=== PATIENT | female | born 1955 | race Caucasian/White ===

== ENCOUNTER 2016-08-20 10:29 | Outpatient (CLI) | payer MEDICAID | END 2016-08-20 10:30 | disposition home or self-care (01) | DX: E11.9 Type 2 diabetes mellitus without complications (principal) ==

== ENCOUNTER 2016-09-11 14:15 | Outpatient (CLI) | payer MEDICAID | END 2016-09-11 14:30 | disposition home or self-care (01) | DX: R07.89 Other chest pain (principal) ==

== ENCOUNTER 2016-10-08 10:46 | Outpatient (CLI) | payer MEDICAID | END 2016-10-08 10:47 | disposition home or self-care (01) | DX: R07.89 Other chest pain (principal); M17.0 Bilateral primary osteoarthritis of knee ==

== ENCOUNTER 2016-11-28 08:00 | Outpatient (CLI) | payer MEDICAID | END 2016-11-28 08:01 | disposition home or self-care (01) | DX: E11.9 Type 2 diabetes mellitus without complications (principal) ==

== ENCOUNTER 2016-12-13 15:23 | Emergency (ER) | payer MEDICAID ==
[2016-12-13] MEDS ORDERED: DEXAMETHASONE 10 MG/ML VIAL PO STA (15:42)
[2016-12-13] MEDS ORDERED: CHERRY SYRUP 10 ML UDC PO ONE (15:48)
[2016-12-13] MEDS ORDERED: DEXAMETHASONE 10 MG/ML VIAL ONE (15:48)
== END 2016-12-13 16:11 | disposition home or self-care (01) ==
DX: M54.12 Radiculopathy, cervical region (principal); E11.9 Type 2 diabetes mellitus without complications; Z79.84 Long term (current) use of oral hypoglycemic drugs; M79.7 Fibromyalgia; M19.90 Unspecified osteoarthritis, unspecified site; Z87.891 Personal history of nicotine dependence
CPT/HCPCS: 99283; A9270

== ENCOUNTER 2017-01-05 10:15 | Outpatient (CLI) | payer MEDICAID ==
--- NOTE | 2017-01-05 18:14 | XRAY Report ---
CERVICAL SPINE, THREE VIEWS: 01/05/2017 CLINICAL HISTORY: Acute neck pain. TECHNIQUE: Three views: AP, lateral, and odontoid. FINDINGS: C-spine can only be seen adequately on lateral projection down to the inferior aspect of C6. It is, therefore, suboptimal. An optimal lateral C- spine should include the C7-T1 level. Mild anterior spurring is noted along the anterior inferior aspect of C3. A moderate-sized spur is seen along the anterior inferior aspect of C4. Moderate spurring is noted along the adjacent anterior surfaces of C5 and C6. A moderate degree of disk space narrowing is noted at the C5-6 level. These findings were seen on patient's cervical spine CT of 07/25/2015 and are unchanged. Odontoid process is normal. IMPRESSION: 1. TECHNICALLY SUBOPTIMAL EXAMINATION. LATERAL C-SPINE WAS ONLY SEEN DOWN TO THE INFERIOR ASPECT OF C6. SUGGEST PATIENT RETURN FOR SWIMMER'S VIEW TO VISUALIZE THE C-SPINE DOWN TO C7-T1 LEVEL. 2. OSTEOARTHRITIS AND DEGENERATIVE DISK DISEASE ARE ONCE AGAIN NOTED IN THE CERVICAL SPINE AT C5-6. OSTEOARTHRITIS AT THIS LEVEL IS OF MODERATE DEGREE AND UNCHANGED COMPARED TO 07/25/2015. JOB #: [id number] EXT JOB #: [id number] ANTOINE
== END 2017-01-05 10:16 | disposition home or self-care (01) ==
LOC: DI.N 10:15
PROVIDERS: ATTEND Family Medicine
DX: M47.892 Other spondylosis, cervical region (principal); M50.322 Other cervical disc degeneration at C5-C6 level
CPT/HCPCS: 72040

== ENCOUNTER 2017-01-16 10:20 | Emergency (ER) | payer MEDICAID ==
[2017-01-16] MEDS ORDERED: METHOCARBAMOL 500 MG TABLET PO STA (12:20)
[2017-01-16] MEDS ORDERED: DEXAMETHASONE 10 MG/ML VIAL PO STA (12:20)
[2017-01-16] MEDS ORDERED: KETOROLAC 60 MG/2 ML VIAL IM STA (12:20)
--- NOTE | 2017-01-16 12:24 | ED Physician Documentation ---
History of Present Illness - Stated complaint Stated Complaint: BACK,NECK,BILAT ARM PAIN - Chief complaint Chief Complaint: Back Pain - History obtained from History obtained from: Patient - History of Present Illness Timing: Other (1month) Pain level max: 8 Pain level now: 8 Improved by: flexeril Worsened by: movement - Additonal information Additional information: Patient is a 61-year-old female who complains of neck pain for the past month. States that this is been worsening over the past month. Has seen her primary care provider, but he did not change her medications. She was here a month ago for same received dexamethasone and was placed on Flexeril. That did help, but pain has not recurred. States occasionally the pain radiates to the bilateral upper arms. Occasionally feels like a cramping pain. No loss of bowel or bladder control. No difficulty using the hands. Review of Systems Constitutional: denies: Fever, Chills Respiratory: denies: Cough GI: denies: Nausea, Vomiting, Diarrhea : denies: Dysuria Skin: denies: Rash Musculoskeletal: denies: Neck pain, Back pain Neurologic: denies: Headache PD PAST MEDICAL HISTORY - Past Medical History Past Medical History: Yes Cardiovascular: None, High cholesterol Respiratory: Asthma, Sleep apnea, CPAP use, Tuberculosis Neuro: Headache/migraine, Head injury Endocrine/Autoimmune: Type 2 diabetes GI: GERD, Cholelithiasis : Incontinence HEENT: None Psych: Depression, Anxiety, Panic attacks, Post traumatic stress disorder, Claustrophobia Musculoskeletal: Osteoarthritis, Fibromyalgia, Chronic back pain Derm: None - Past Surgical History Past Surgical History: Yes General: Cholecystectomy 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 HEENT: Tonsil/Adenoidectomy Derm: Skin cancer surgery - Present Medications Home Medications: Ambulatory Orders Medication Instructions Recorded Confirmed Albuterol [Proventil Hfa] 200 puffs INH Q4H PRN 02/05/13 01/16/17 Carisoprodol [Soma] 350 mg PO QPM 02/05/13 01/16/17 Fluticasone [Flonase] 1 sprays ANABELA DAILY 02/05/13 01/16/17 Omeprazole [PriLOSEC] 20 mg PO DAILY 02/05/13 01/16/17 Pregabalin [Lyrica] 225 mg PO BID 02/05/13 01/16/17 traMADol [Ultram] 100 mg PO TID 03/16/15 01/16/17 Pravastatin Sodium 40 mg PO DAILY 05/09/15 01/16/17 metFORMIN [Glucophage] 1,000 mg PO BIDWM 05/09/15 01/16/17 Loratadine 10 mg PO DAILY 06/12/15 01/16/17 busPIRone [Buspar] 10 mg ORAL BID 08/26/15 01/16/17 Amitriptyline [Elavil] 10 mg PO HS #30 tablet 09/25/15 01/16/17 raNITIdine [Zantac] 1 tab PO DAILY 03/23/16 01/16/17 Cyclobenzaprine [Flexeril] 10 mg PO TID PRN #20 tablet 12/13/16 01/16/17 Glipizide 5 mg PO DAILY 01/16/17 01/16/17 Meloxicam [Mobic] 7.5 mg PO BID PRN #20 tablet 01/16/17 Methocarbamol [Robaxin] 500 mg PO Q6H PRN #14 tablet 01/16/17 - Allergies Allergies/Adverse Reactions: Allergies Allergy/AdvReac Type Severity Reaction Status Date / Time No Known Drug Allergies Allergy Verified 01/16/17 10:30 - Social History Does the pt smoke?: No Smoking Status: Former smoker Does the pt drink ETOH?: No Does the pt have substance abuse?: No - Immunizations Immunizations are current?: No Immunizations: TDAP >10years/unknown - POLST Patient has POLST: No PD ED PE NORMAL - Vitals Vital signs reviewed: Yes - General General: Alert and oriented X 3, No acute distress - HEENT HEENT: Moist mucous membranes - Neck Neck: Supple, no meningeal sign, No bony TTP, Other (mild paraspinal muscle spasm B ) - Cardiac Cardiac: RRR, Strong equal pulses - Respiratory Respiratory: No respiratory distress, Clear bilaterally - Back Back: No spinal TTP - Derm Derm: Warm and dry - Neuro Neuro: Alert and oriented X 3, 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 Will treat with Toradol and Robaxin. Also given dexamethasone. Will place on Robaxin for home. Will also place on Mobic for home. Patient is well-appearing, nontoxic. Afebrile. No evidence of fracture or epidural abscess. Patient counseled regarding signs and symptoms for which I believe and urgent re-evaluation would be necessary. Patient with good understanding of and agreement to plan and is comfortable going home at this time This document was made in part using voice recognition software. While efforts are made to proofread this document, sound alike and grammatical errors may occur. Departure - Departure Disposition: 01 Home, Self Care Clinical Impression: Cervical radiculopathy Condition: Good Instructions: ED Cervical Radiculopathy, ED Neck Back Pain General Follow-Up: Amador Merchant MD [Primary Care Provider] - Within 1 week Prescriptions: Meloxicam [Mobic] 7.5 mg PO BID PRN #20 tablet PRN Reason: pain Methocarbamol [Robaxin] 500 mg PO Q6H PRN #14 tablet PRN Reason: neck pain Comments: Return if you worsen. Do not drive or operate heavy machinery while taking the robaxin. Discharge Date/Time: 01/16/17 13:00
[2017-01-16] MEDS ORDERED: METHOCARBAMOL 500 MG TABLET PO ONE (12:29)
[2017-01-16] MEDS ORDERED: KETOROLAC 60 MG/2 ML VIAL ONE (12:29)
[2017-01-16] MEDS ORDERED: DEXAMETHASONE 10 MG/ML VIAL ONE (12:29)
[2017-01-16 13:01] VITALS: BP 139/92
== END 2017-01-16 13:00 | disposition home or self-care (01) ==
LOC: ED 10:20
DX: M54.12 Radiculopathy, cervical region (principal); M19.90 Unspecified osteoarthritis, unspecified site; M79.7 Fibromyalgia; E11.9 Type 2 diabetes mellitus without complications; Z79.84 Long term (current) use of oral hypoglycemic drugs; Z87.891 Personal history of nicotine dependence
CPT/HCPCS: 96372; 99283; A9270

== ENCOUNTER 2017-03-10 11:10 | Outpatient (CLI) | payer MEDICAID ==
[2017-03-10 14:19] LABS: HEMOGLOBIN A1C 0.98 g/dL
[2017-03-10 14:29] LABS: CALCIUM 9.5 mg/dL (8.5-10.3); CREATININE 0.9 mg/dL (0.4-1.0); POTASSIUM 4.1 mmol/L (3.5-5.0)
== END 2017-03-10 11:11 | disposition home or self-care (01) ==
LOC: LAB.N 11:10
PROVIDERS: ATTEND Family Medicine
DX: E11.9 Type 2 diabetes mellitus without complications (principal)
CPT/HCPCS: 36415; 80048; 83036

== ENCOUNTER 2017-04-01 14:51 | Emergency (ER) | payer MEDICAID ==
[2017-04-01] MEDS ORDERED: DEXAMETHASONE 10 MG/ML VIAL PO STA (15:25)
--- NOTE | 2017-04-01 16:03 | XRAY Preliminary Report ---
Exam: XR Chest 2 View PA/LAT IMPRESSION: Normal 2-view chest radiography. [facility] SITE ID: [id number]
--- NOTE | 2017-04-01 16:05 | XRAY Report ---
EXAM: CHEST RADIOGRAPHY EXAM DATE: 04/01/2017 03:52 PM. CLINICAL HISTORY: Central chest pain. COMPARISON: 11/27/2014 chest x-ray. TECHNIQUE: 2 views. FINDINGS: Lungs/Pleura: No focal opacities evident. No pleural effusion. No pneumothorax. Normal volumes. Mediastinum: Heart and mediastinal contours are unremarkable. Other: None. IMPRESSION: Normal 2-view chest radiography. [facility] Referring Provider Line: [phone] SITE ID: [id number]
--- NOTE | 2017-04-01 16:12 | ED Physician Documentation ---
PD HPI CHEST PAIN - Stated complaint Stated Complaint: RIB PAIN - Chief complaint Chief Complaint: General - History obtained from History obtained from: Patient, Family - History of Present Illness Timing - onset: How many weeks ago (3-4) Timing - onset during: Rest Timing - duration: Weeks (3) Timing - details: Gradual onset, Still present Quality: Aching, Sharp, Pain Location: Substernal Radiation: No: Jaw, Neck, Back, Abdominal, Left upper extremity, Right upper extremity Improved by: Nothing Worsened by: Inspiration, Movement, Palpation, Position Associated symptoms: No: Shortness of air, Diaphoresis, Nausea, Vomiting, Feeling faint / dizzy, General Weakness, Palpitations, Cough Similar symptoms before: Has not had sx before Recently seen: Not recently seen - Additional information Additional information: 61-year-old female has concerns about pain in her anterior chest that she thinks occurred after a fall in the bathtub 2 months ago. She is really only able to elicit symptoms for the past 3-4 weeks and she does have a history of some sobbing in between this time. Review of Systems Constitutional: denies: Fever Eyes: denies: Decreased vision Ears: denies: Ear pain Nose: denies: Congestion Throat: denies: Sore throat Cardiac: reports: Chest pain / pressure. denies: Palpitations, Pedal edema, Calf pain Respiratory: denies: Dyspnea, Cough GI: denies: Abdominal Pain, Nausea, Vomiting : denies: Dysuria, Frequency Skin: denies: Rash Musculoskeletal: reports: Neck pain, Back pain, Extremity pain Neurologic: denies: Generalized weakness, Focal weakness, Numbness PD PAST MEDICAL HISTORY - Past Medical History Cardiovascular: None, High cholesterol Respiratory: Asthma, Sleep apnea, CPAP use, Tuberculosis Neuro: Headache/migraine, Head injury Endocrine/Autoimmune: Type 2 diabetes GI: GERD, Cholelithiasis : Incontinence HEENT: None Psych: Depression, Anxiety, Panic attacks, Post traumatic stress disorder, Claustrophobia Musculoskeletal: Osteoarthritis, Fibromyalgia, Chronic back pain Derm: None - Past Surgical History Past Surgical History: Yes General: Cholecystectomy 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 HEENT: Tonsil/Adenoidectomy Derm: Skin cancer surgery - Present Medications Home Medications: Ambulatory Orders Medication Instructions Recorded Confirmed Albuterol [Proventil Hfa] 200 puffs INH Q4H PRN 02/05/13 01/16/17 Carisoprodol [Soma] 350 mg PO QPM 02/05/13 01/16/17 Fluticasone [Flonase] 1 sprays ANABELA DAILY 02/05/13 01/16/17 Omeprazole [PriLOSEC] 20 mg PO DAILY 02/05/13 01/16/17 Pregabalin [Lyrica] 225 mg PO BID 02/05/13 01/16/17 traMADol [Ultram] 100 mg PO TID 03/16/15 01/16/17 Pravastatin Sodium 40 mg PO DAILY 05/09/15 01/16/17 metFORMIN [Glucophage] 1,000 mg PO BIDWM 05/09/15 01/16/17 Loratadine 10 mg PO DAILY 06/12/15 01/16/17 busPIRone [Buspar] 10 mg ORAL BID 08/26/15 01/16/17 Amitriptyline [Elavil] 10 mg PO HS #30 tablet 09/25/15 01/16/17 raNITIdine [Zantac] 1 tab PO DAILY 03/23/16 01/16/17 Cyclobenzaprine [Flexeril] 10 mg PO TID PRN #20 tablet 12/13/16 01/16/17 Glipizide 5 mg PO DAILY 01/16/17 01/16/17 Meloxicam [Mobic] 7.5 mg PO BID PRN #20 tablet 01/16/17 Methocarbamol [Robaxin] 500 mg PO Q6H PRN #14 tablet 01/16/17 - Allergies Allergies/Adverse Reactions: Allergies Allergy/AdvReac Type Severity Reaction Status Date / Time No Known Drug Allergies Allergy Verified 01/16/17 10:30 - Social History Does the pt smoke?: No Smoking Status: Former smoker Does the pt drink ETOH?: No Does the pt have substance abuse?: No - Immunizations Immunizations are current?: No Immunizations: TDAP >10years/unknown - POLST Patient has POLST: No PD ED PE NORMAL - Vitals Vital signs reviewed: Yes (Hypertensive and tachycardic) - General General: Alert and oriented X 3, No acute distress, Well developed/nourished - HEENT HEENT: Atraumatic, PERRL, EOMI - Neck Neck: Supple, no meningeal sign, Other (Mild tenderness to the left lateral neck ) - Cardiac Cardiac: RRR, No murmur - Respiratory Respiratory: No respiratory distress, Clear bilaterally, Other (There is point tenderness along the sternum reproducing her symptoms) - Abdomen Abdomen: Soft, Non tender - Back Back: No CVA TTP, No spinal TTP - Derm Derm: Normal color, Warm and dry, No rash - Extremities Extremities: No deformity, No edema - Neuro Neuro: Alert and oriented X 3, No motor deficit, Normal speech - Psych Psych: Normal mood, Normal affect Results - Vitals Vitals: Vital Signs - 24 hr 04/01/17 15:08 Temperature 36.0 C L Heart Rate 101 H Respiratory 20 Rate Blood Pressure 122/86 H O2 Saturation 97 Oxygen O2 Source Room air - Rads (name of study) 2 view chest Radiology: Prelim report reviewed (Impression: Normal two-view chest radiography.), EMP read indepedently, See rad report PD MEDICAL DECISION MAKING - ED course Complexity details: reviewed results, re-evaluated patient, considered differential, d/w patient, d/w family ED course: 61-year-old female with pain in the anterior chest for the past 3-4 weeks appears to have acute costochondritis. She has been doing some sobbing at night and this is the presumed etiology of her costochondritis. Here in the emergency department she is treated with dexamethasone 10 mg orally. Departure - Departure Disposition: 01 Home, Self Care Clinical Impression: Costochondritis Condition: Stable Instructions: ED Chest Pain Costochondritis Follow-Up: Gianna Bill PA-C [Primary Care Provider] -
[2017-04-01 17:15] VITALS: BP 121/81
== END 2017-04-01 17:14 | disposition home or self-care (01) ==
LOC: ED 14:51
DX: M94.0 Chondrocostal junction syndrome [Tietze] (principal); J45.909 Unspecified asthma, uncomplicated; G47.30 Sleep apnea, unspecified; E11.9 Type 2 diabetes mellitus without complications; Z79.84 Long term (current) use of oral hypoglycemic drugs; M79.7 Fibromyalgia; M19.90 Unspecified osteoarthritis, unspecified site; K21.9 Gastro-esophageal reflux disease without esophagitis; Z86.11 Personal history of tuberculosis; Z85.828 Personal history of other malignant neoplasm of skin; Z87.891 Personal history of nicotine dependence
CPT/HCPCS: 71020; 99283; 99284

== ENCOUNTER 2018-03-04 11:56 | Emergency (ER) | payer MEDICAID, MEDICARE ==
--- NOTE | 2018-03-04 14:39 | ED Physician Documentation ---
History of Present Illness - Stated complaint Stated Complaint: EARS PLUGGED UP - Chief complaint Chief Complaint: Heent - Additonal information Additional information: hx from pt cerumen impaction for a month used an OTC ear drop she does not know the name of has not seen PMD - goes to a clinic in [place] but does not know the name of her new doctor has been using Q tips hard to hear Review of Systems Ears: reports: Other (impacted cerumen) PD PAST MEDICAL HISTORY - Past Medical History Past Medical History: Yes Cardiovascular: None, High cholesterol Respiratory: Asthma, Sleep apnea, CPAP use, Tuberculosis Endocrine/Autoimmune: Type 2 diabetes GI: GERD, Cholelithiasis : Incontinence HEENT: None Psych: Depression, Anxiety, Panic attacks, Post traumatic stress disorder, Claustrophobia Musculoskeletal: Osteoarthritis, Fibromyalgia, Chronic back pain Derm: None - Past Surgical History Past Surgical History: Yes General: Cholecystectomy 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 HEENT: Tonsil/Adenoidectomy Derm: Skin cancer surgery - Present Medications Home Medications: Ambulatory Orders Medication Instructions Recorded Confirmed Albuterol [Proventil Hfa] 200 puffs INH Q4H PRN 02/05/13 01/16/17 Fluticasone [Flonase] 1 sprays ANABELA DAILY 02/05/13 01/16/17 Pregabalin [Lyrica] 225 mg PO BID 02/05/13 01/16/17 traMADol [Ultram] 100 mg PO TID 03/16/15 01/16/17 Pravastatin Sodium 40 mg PO DAILY 05/09/15 01/16/17 metFORMIN [Glucophage] 1,000 mg PO BIDWM 05/09/15 01/16/17 Loratadine 10 mg PO DAILY 06/12/15 01/16/17 busPIRone [Buspar] 10 mg ORAL BID 08/26/15 01/16/17 Amitriptyline [Elavil] 10 mg PO HS #30 tablet 09/25/15 01/16/17 raNITIdine [Zantac] 1 tab PO DAILY 03/23/16 01/16/17 Glipizide 5 mg PO DAILY 01/16/17 01/16/17 Carbamide Peroxide Otic Drop 10 drops OT BID #1 bottle 03/04/18 [Debrox Otic Drops] Docusate Sodium 1 ml EACHEAR DAILY #25 ml 03/04/18 - Allergies Allergies/Adverse Reactions: Allergies Allergy/AdvReac Type Severity Reaction Status Date / Time No Known Drug Allergies Allergy Verified 03/04/18 12:07 - Social History Does the pt smoke?: No Smoking Status: Never smoker Does the pt drink ETOH?: No Does the pt have substance abuse?: No - Immunizations Immunizations are current?: No Immunizations: TDAP >10years/unknown - POLST Patient has POLST: No Results - Vitals Vitals: Vital Signs - 24 hr 03/04/18 12:05 Temperature 36 C L Heart Rate 79 Respiratory 18 Rate Blood Pressure 118/80 O2 Saturation 95 Oxygen O2 Source Room air PD MEDICAL DECISION MAKING - ED course ED course: multiple attempts with manual curette removal and irrigation with peroxide removed much but not all of the cerumen - Tm parlty vis on the right and pt can hear again, still hard cerumen packed against TM on the left MSE performed problem is cerumen impaction and non emergent txed as best possible given busy ED feel pt stable and safe for dc dc with ceruminolytics and PMD fup - Sepsis Event Vital Signs: Vital Signs - 24 hr 03/04/18 12:05 Temperature 36 C L Heart Rate 79 Respiratory 18 Rate Blood Pressure 118/80 O2 Saturation 95 Oxygen O2 Source Room air Departure - Departure Disposition: 01 Home, Self Care Clinical Impression: Impacted cerumen of both ears Condition: Good Instructions: ED Wax Ear Home Removal Prescriptions: Carbamide Peroxide Otic Drop [Debrox Otic Drops] 10 drops OT BID #1 bottle Docusate Sodium 1 ml EACHEAR DAILY #25 ml Comments: Use the docusate 1 ml in each ear once daily for three days and if still clogged try the debrox 10 drops in each ear twice a day for a week Follow up with your PMD for a recheck if not better by next week. Do not use Qtips - it just packs the wax in tighter
[2018-03-04 14:57] VITALS: BP 123/81
== END 2018-03-04 14:56 | disposition home or self-care (01) ==
LOC: ED 11:56
DX: H61.23 Impacted cerumen, bilateral (principal); E11.9 Type 2 diabetes mellitus without complications; E78.00 Pure hypercholesterolemia, unspecified
CPT/HCPCS: 69209; 99283

== ENCOUNTER 2018-08-02 11:03 | Outpatient (CLI) | payer MEDICARE, MEDICAID ==
[2018-08-02 19:27] LABS: BASOPHILS % (AUTO) 0.4 %; EOSINOPHILS # (AUTO) 0.2 10^3/uL (0.0-0.7); EOSINOPHILS % (AUTO) 2.3 %; HGB - HEMOGLOBIN 13.7 g/dL (12.0-16.0); LYMPHOCYTES # (AUTO) 2.6 10^3/uL (1.5-3.5); LYMPHOCYTES % (AUTO) 40.5 %; MEAN CORPUSCULAR HEMOGLOBIN 30.3 pg (27.0-31.0); MEAN CORPUSCULAR HGB CONC 32.6 g/dL (32.0-36.0); MEAN CORPUSCULAR VOLUME 93.1 fL (81.0-99.0); MEAN PLATELET VOLUME 10.1 fL (7.9-10.8); MONOCYTES # (AUTO) 0.4 10^3/uL (0.0-1.0); NEUTROPHILS # (AUTO) 3.3 10^3/uL (1.5-6.6); NEUTROPHILS % (AUTO) 50.8 %; PLT - PLATELET COUNT 190 10^3/uL (130-450); RED BLOOD COUNT 4.51 10^6/uL (4.20-5.40); RED CELL DISTRIBUTION WIDTH 14.3 % (12.0-15.0); WHITE BLOOD COUNT 6.5 x10^3/uL (4.8-10.8)
[2018-08-02 19:30] LABS: BUN - BLOOD UREA NITROGEN 25 mg/dL (6-20); CALCIUM 8.8 mg/dL (8.5-10.3); CARBON DIOXIDE - CO2 26 mmol/L (21-32); CHLORIDE 99 mmol/L (101-111); CHOL/HDL RATIO 3.4 (<4.4); CHOLESTEROL 230 mg/dL; CREATININE 0.6 mg/dL (0.4-1.0); GFR - MDRD 101 (>89); GLUCOSE 155 mg/dL (70-100); HDL CHOLESTEROL 67 mg/dL; LDL CHOLESTEROL,CALCULATED 143 mg/dL; LDL/HDL RATIO 2.1 (<4.4); SODIUM 136 mmol/L (135-145); VLDL CHOLESTEROL 20 mg/dL
[2018-08-02 19:53] LABS: HB2 TOTAL 14.2 g/dL; HEMOGLOBIN A1C 0.75 g/dL
== END 2018-08-02 23:59 | disposition home or self-care (01) ==
LOC: LAB.N 11:03
PROVIDERS: ATTEND Physician Assistant Medical
DX: E11.9 Type 2 diabetes mellitus without complications (principal)
CPT/HCPCS: 36415; 80048; 80061; 83036; 83721; 85025

== ENCOUNTER 2018-08-19 17:01 | Emergency (ER) | payer MEDICARE, MEDICAID ==
[2018-08-19 17:08] VITALS: BP 127/96
[2018-08-19] MEDS ORDERED: MELOXICAM 7.5 MG TABLET PO STA (17:30)
--- NOTE | 2018-08-19 18:04 | ED Physician Documentation ---
History of Present Illness - Stated complaint Stated Complaint: RT HIP/KNEE PX - Chief complaint Chief Complaint: Ext Problem - History obtained from History obtained from: Patient, Family - History of Present Illness Timing: Other (months) Pain level max: 8 Pain level now: 8 - Additonal information Additional information: 62-year-old female states that her right hip and right knee hurting her for the past several weeks. Worse with walking, better with rest. Has not taken anything for pain. No fall. Does not use any assistive devices to help her ambulate. Has not seen her PCP Review of Systems Constitutional: denies: Fever, Chills Nose: denies: Rhinorrhea / runny nose, Congestion Respiratory: denies: Cough GI: denies: Abdominal Pain, Vomiting, Diarrhea Skin: denies: Rash Musculoskeletal: denies: Neck pain, Back pain Neurologic: denies: Headache PD PAST MEDICAL HISTORY - Past Medical History Past Medical History: Yes Cardiovascular: None, High cholesterol Respiratory: Asthma, Sleep apnea, CPAP use, Tuberculosis Endocrine/Autoimmune: Type 2 diabetes GI: GERD, Cholelithiasis : Incontinence HEENT: None Psych: Depression, Anxiety, Panic attacks, Post traumatic stress disorder, Claustrophobia Musculoskeletal: Osteoarthritis, Fibromyalgia, Chronic back pain Derm: None - Past Surgical History Past Surgical History: Yes General: Cholecystectomy 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 HEENT: Tonsil/Adenoidectomy Derm: Skin cancer surgery - Present Medications Home Medications: Ambulatory Orders Medication Instructions Recorded Confirmed Albuterol [Proventil Hfa] 200 puffs INH Q4H PRN 02/05/13 01/16/17 Fluticasone [Flonase] 1 sprays ANABELA DAILY 02/05/13 01/16/17 Pregabalin [Lyrica] 225 mg PO BID 02/05/13 01/16/17 metFORMIN [Glucophage] 1,000 mg PO BIDWM 05/09/15 01/16/17 Amitriptyline [Elavil] 10 mg PO HS #30 tablet 09/25/15 01/16/17 raNITIdine [Zantac] 1 tab PO DAILY 03/23/16 01/16/17 Glipizide 5 mg PO DAILY 01/16/17 01/16/17 Meloxicam [Mobic] 15 mg PO DAILY PRN #20 tablet 08/19/18 - Allergies Allergies/Adverse Reactions: Allergies Allergy/AdvReac Type Severity Reaction Status Date / Time No Known Drug Allergies Allergy Verified 08/19/18 17:08 - Social History Does the pt smoke?: No Smoking Status: Never smoker Does the pt drink ETOH?: No Does the pt have substance abuse?: No - Immunizations Immunizations are current?: No Immunizations: TDAP >10years/unknown - POLST Patient has POLST: No PD ED PE NORMAL - Vitals Vital signs reviewed: Yes - General General: Alert and oriented X 3, No acute distress - HEENT HEENT: Moist mucous membranes - Neck Neck: Supple, no meningeal sign - Cardiac Cardiac: RRR - Respiratory Respiratory: No respiratory distress, Clear bilaterally - Derm Derm: Warm and dry - Extremities Extremities: Other (Pain with ROM of the R hip and knee. no skin changes. NVI. ) - Neuro Neuro: Alert and oriented X 3 Results - Vitals Vitals: Vital Signs - 24 hr 08/19/18 17:05 Temperature 36 C L Heart Rate 86 Respiratory 18 Rate Blood Pressure 127/96 H O2 Saturation 98 Oxygen O2 Source Room air - Rads (name of study) R hip xray Radiology: Prelim report reviewed, EMP read contemporaneously, See rad report (normal) PD MEDICAL DECISION MAKING - ED course Complexity details: reviewed results, re-evaluated patient, considered differential, d/w patient, d/w family ED course: 62-year-old female with hip and knee pain of unclear etiology. She has a cane and a walker at home and will start to use these. Will place on anti- inflammatories and follow-up with her doctor. No evidence of septic joint. No acute findings on x-ray. Patient and family counseled regarding signs and symptoms for which I believe and urgent re-evaluation would be necessary. Patient with good understanding of and agreement to plan and is comfortable going home at this time This document was made in part using voice recognition software. While efforts are made to proofread this document, sound alike and grammatical errors may occur. Departure - Departure Disposition: 01 Home, Self Care Clinical Impression: Hip pain, right Condition: Good Instructions: ED Acute Pain [facility] Follow-Up: Rj Anton PA-C [Primary Care Provider] - Within 1 week Prescriptions: Meloxicam [Mobic] 15 mg PO DAILY PRN #20 tablet PRN Reason: pain Comments: You should use a cane or a walker to help you ambulate at home. Use the medication as prescribed to help with your pain. Follow-up with your doctor for further care. Discharge Date/Time: 08/19/18 18:41
--- NOTE | 2018-08-19 18:12 | XRAY Report ---
Reason: R hip pain Procedure Date: 08/19/2018 Accession Number: [id number] / [id number] Procedure: XR - Hip w/Pelvis 2-3V RT CPT Code: FULL RESULT: EXAM: RIGHT HIP AND PELVIS RADIOGRAPHY EXAM DATE: 08/19/2018 06:00 PM. HISTORY: Acute on chronic hip pain, over the past 3 weeks. No precipitating injury. COMPARISONS: None. TECHNIQUE: 1 view of the pelvis and 1 view of the hip. FINDINGS: Bones: Normal. No fracture or bone lesion. Joints: The bilateral hip, pubis symphysis, and sacroiliac joints are preserved. Normal hip joints. Normal sacroiliac joints. Soft Tissues: Normal. No soft tissue swelling. IMPRESSION: Normal pelvis and hip radiography. [facility]
== END 2018-08-19 18:41 | disposition home or self-care (01) ==
LOC: ED 17:01
DX: M25.551 Pain in right hip (principal); E11.9 Type 2 diabetes mellitus without complications; Z79.84 Long term (current) use of oral hypoglycemic drugs; E78.00 Pure hypercholesterolemia, unspecified
CPT/HCPCS: 73502; 99283; A9270

== ENCOUNTER 2018-11-09 08:00 | Outpatient (CLI) | payer MEDICARE, MEDICAID ==
[2018-11-09 17:46] LABS: HB2 TOTAL 15.6 g/dL; HEMOGLOBIN A1C 1.49 g/dL; HEMOGLOBIN A1C % 10.9 % (4.6-6.2)
== END 2018-11-09 23:59 | disposition home or self-care (01) ==
LOC: LAB.N 08:00
PROVIDERS: ATTEND Physician Assistant Medical
DX: E11.9 Type 2 diabetes mellitus without complications (principal)
CPT/HCPCS: 36415; 83036

== ENCOUNTER 2018-11-22 15:09 | Outpatient (CLI) | payer MEDICARE, MEDICAID ==
--- NOTE | 2018-11-23 11:26 | MRI Report ---
Reason: RIGHT HIP PAIN Procedure Date: 11/22/2018 Accession Number: [id number] / [id number] Procedure: MRI - Hip RT W/O CPT Code: FULL RESULT: EXAM: RIGHT HIP MRI WITHOUT CONTRAST EXAM DATE: 11/22/2018 04:05 PM. CLINICAL HISTORY: Right hip pain after fall in August 2018. COMPARISON: 08/19/2018 radiograph. TECHNIQUE: Multiplanar, multisequence T1-weighted and fluid-sensitive, small [id number] sequences of the hip and large obxbt-dw-[id number] sequences of the pelvis without contrast. Other: None. FINDINGS: Bones: No fractures or subluxations. No marrow edema or bone lesions. Right Hip: No acetabular retroversion. No effusion or loose bodies. The articular cartilage is intact. Some linear increased signal in the region of the labrum at 2 o'clock position in the anterosuperior quadrant can be seen on series 901, image 16 and series 801, image 21. This may be a full-thickness labral tear or just some fluid between the labrum and the adjacent joint capsule. The ligamentum teres is intact. Other Joints: The visualized lumbar spine, sacroiliac joints, symphysis pubis, and contralateral hip are unremarkable. Musculature: No edema or fatty atrophy. The gluteus medius and minimus tendons are normal. The visualized hamstring tendons are normal. The ischiofemoral space is normal. Pelvic Cavity: The patient has had a hysterectomy. The bladder and other pelvic organs are unremarkable. Other: The visualized sciatic nerves are unremarkable. No bursitis. The subcutaneous tissues are unremarkable. IMPRESSION: Potential tear of the anterosuperior labrum. MRI arthrogram would be able to better evaluate. [facility] MUSCULOSKELETAL RADIOLOGY SECTION
== END 2018-11-22 15:10 | disposition home or self-care (01) ==
LOC: DI 15:09
PROVIDERS: ATTEND Orthopaedic Surgery
DX: M25.551 Pain in right hip (principal); M54.9 Dorsalgia, unspecified

== ENCOUNTER 2019-04-29 20:55 | Emergency (ER) | payer MEDICARE, MEDICAID ==
[2019-04-29 21:01] VITALS: BP 127/100
[2019-04-29] MEDS ORDERED: BUFFERED LIDOCAINE 10 ML SYRINGE SUBQ STA (21:02)
--- NOTE | 2019-04-29 21:14 | ED Physician Documentation ---
PD HPI LOWER EXT INJURY - Stated complaint Stated Complaint: LEFT FOOT PX - Chief complaint Chief Complaint: Ext Problem - History obtained from History obtained from: Patient - History of Present Illness PD HPI LOW EXT INJURY LOCATION: Left (Ingrown toenail on the left foot that is bothering her) Review of Systems Constitutional: reports: Reviewed and negative Musculoskeletal: reports: Reviewed and negative Neurologic: reports: Reviewed and negative PD PAST MEDICAL HISTORY - Past Medical History Cardiovascular: None, High cholesterol Respiratory: Asthma, Sleep apnea, CPAP use, Tuberculosis Endocrine/Autoimmune: Type 2 diabetes GI: GERD, Cholelithiasis : Incontinence HEENT: None Psych: Depression, Anxiety, Panic attacks, Post traumatic stress disorder, Claustrophobia Musculoskeletal: Osteoarthritis, Fibromyalgia, Chronic back pain Derm: None - Past Surgical History Past Surgical History: Yes General: Cholecystectomy 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 HEENT: Tonsil/Adenoidectomy Derm: Skin cancer surgery - Present Medications Home Medications: Ambulatory Orders Medication Instructions Recorded Confirmed Albuterol [Proventil Hfa] 200 puffs INH Q4H PRN 02/05/13 01/16/17 Fluticasone [Flonase] 1 sprays ANABELA DAILY 02/05/13 01/16/17 Pregabalin [Lyrica] 225 mg PO BID 02/05/13 01/16/17 metFORMIN [Glucophage] 1,000 mg PO BIDWM 05/09/15 01/16/17 Amitriptyline [Elavil] 10 mg PO HS #30 tablet 09/25/15 01/16/17 raNITIdine [Zantac] 1 tab PO DAILY 03/23/16 01/16/17 Acetaminophen with Codeine 1 each PO TID PRN 04/29/19 04/29/19 [Acetaminophen-Cod #3 Tablet] Ibuprofen 400 mg PO TID 04/29/19 04/29/19 Methocarbamol 500 mg PO BID 04/29/19 04/29/19 - Allergies Allergies/Adverse Reactions: Allergies Allergy/AdvReac Type Severity Reaction Status Date / Time No Known Drug Allergies Allergy Verified 04/29/19 21:01 - Social History Does the pt smoke?: No Smoking Status: Never smoker Does the pt drink ETOH?: No Does the pt have substance abuse?: No - Immunizations Immunizations are current?: No Immunizations: TDAP >10years/unknown - POLST Patient has POLST: No PD ED PE NORMAL - Vitals Vital signs reviewed: Yes - General General: Alert and oriented X 3, No acute distress - Extremities Extremities: Other (Mildly ingrown toenail of the medial surface of the left great toenail without infection) - Neuro Neuro: Alert and oriented X 3, Normal speech Results - Vitals Vitals: Vital Signs - 24 hr 04/29/19 20:57 Temperature 36.1 C L Heart Rate 89 Respiratory 18 Rate Blood Pressure 127/100 H O2 Saturation 97 Oxygen O2 Source Room air Procedures - General procedure General procedure: After verbal informed consent a digital block was done in standard fashion of the left great toe with buffered lidocaine with excellent anesthesia. Subsequent to that the medial fifth of the nail was rolled up off the nail bed in its entirety with hemostats and then sharply dissected off the nail bed and a dressing was placed. Departure - Departure Disposition: 01 Home, Self Care Clinical Impression: Ingrown toenail of left foot Condition: Good Record reviewed to determine appropriate education?: Yes Instructions: ED Ingrown Toenail Excised Follow-Up: Milli Yu DPM [Provider Admit Priv/Credential] - Within 1 week Comments: Your blood pressure was elevated today on check into the emergency department. This does not mean that you have hypertension, it is a common phenomenon to come to the emergency department and have elevated blood pressure. I recommend that you see your primary care physician within the week to have it rechecked when you are feeling better.
== END 2019-04-29 21:29 | disposition home or self-care (01) ==
LOC: ED 20:55
DX: L60.0 Ingrowing nail (principal); E11.9 Type 2 diabetes mellitus without complications; Z79.84 Long term (current) use of oral hypoglycemic drugs; R03.0 Elevated blood-pressure reading, without diagnosis of hypertension
CPT/HCPCS: 11730

== ENCOUNTER 2019-07-21 06:03 | Day surgery (SDC) | payer MEDICARE ==
[2019-07-21] MEDS ORDERED: LACTATED RINGERS 1,000 ML IV ONE (06:28)
[2019-07-21] MEDS ORDERED: MIDAZOLAM 2 MG/2 ML VIAL IVP ONE (07:30)
[2019-07-21] MEDS ORDERED: fentaNYL 250 MCG/5 ML VIAL IVP ONE (07:30)
[2019-07-21 08:46] VITALS: BP 103/85
== END 2019-07-21 06:04 | disposition home or self-care (01) ==
LOC: SDS 06:03
PROVIDERS: ATTEND Surgery
PROC: 0DJD8ZZ Inspection of Lower Intestinal Tract, Via Natural or Artificial Opening Endoscopic (ICD-10-PCS; principal; 2019-07-21 07:30)
DX: Z12.11 Encounter for screening for malignant neoplasm of colon (principal); G47.33 Obstructive sleep apnea (adult) (pediatric); E11.9 Type 2 diabetes mellitus without complications; E66.9 Obesity, unspecified; Z68.39 Body mass index [BMI] 39.0-39.9, adult
CPT/HCPCS: G0121; J3010; J7120

== ENCOUNTER 2020-02-20 08:54 | Outpatient (CLI) | payer MEDICARE, MEDICAID ==
--- NOTE | 2020-02-20 17:23 | Ultrasound Report ---
PROCEDURE: Abdomen Limited INDICATIONS: ABNORMAL LFTS TECHNIQUE: Real-time focused scanning was performed of the abdomen, with image documentation. COMPARISON: Abdomen ultrasound 04/14/2013 FINDINGS: Liver is enlarged measuring 20 cm. It demonstrates diffuse increased echogenicity.Gallblad jason has been removed. No pericholecystic fluid. Common bile duct measures 6.5 mm. Right kidney measur es 11.4 cm. Cortex measures 1.6 cm. IMPRESSION: Hepatomegaly with steatosis. Reviewed by: Karely Jones MD on 02/20/2020 5:21 PM PDT Approved by: Kareyl Jones MD on 02/20/2020 5:21 PM PDT Station ID: [id number]
== END 2020-02-20 08:55 | disposition home or self-care (01) ==
LOC: DI 08:54
PROVIDERS: ATTEND Internal Medicine
DX: R74.8 Abnormal levels of other serum enzymes (principal); K76.0 Fatty (change of) liver, not elsewhere classified
CPT/HCPCS: 76705

== ENCOUNTER 2020-05-06 20:50 | Emergency (ER) | payer MEDICARE, MEDICAID ==
[2020-05-06] MEDS ORDERED: HYDROmorphone 1 MG/ML CARPUJECT IM STA (22:55)
[2020-05-06] MEDS ORDERED: KETOROLAC 60 MG/2 ML VIAL IM STA (22:55)
--- NOTE | 2020-05-06 23:10 | ED Physician Documentation ---
History of Present Illness - Stated complaint Stated Complaint: BACK/HEAD PAIN - Chief complaint Chief Complaint: Back Pain - History obtained from History obtained from: Patient - Additonal information Additional information: Patient comes emergency department complaining of a flareup of her chronic pain after nearly falling 2 days ago. Patient states that she has a history of fibromyalgia and that she tripped, which jolted her and caused her to fall against a railing. She states that since that [place] she has been hurting all up and down the right side of her back shooting down into both her legs. Patient denies any direct trauma to the back. She states she felt fine for the first couple of days, though by the end of the second day, she began to notice that she had developed some soreness on the right side. She states that today it has been very bad and that her normal codeine that she gets from her pain specialist is not helping. Patient denies any loss of bowel or bladder function. She denies any numbness or tingling in her lower extremities. Patient was not injured in any other way. She states she has had an intermittent dull headache on the left side. However, this seems to be doing better right now. No other complaints at this time. Review of Systems Ten Systems: 10 systems reviewed and negative Constitutional: reports: Reviewed and negative Eyes: reports: Reviewed and negative Ears: reports: Reviewed and negative Nose: reports: Reviewed and negative Throat: reports: Reviewed and negative Cardiac: reports: Reviewed and negative Respiratory: reports: Reviewed and negative GI: reports: Reviewed and negative : reports: Reviewed and negative Skin: reports: Reviewed and negative Musculoskeletal: reports: Back pain Neurologic: reports: Headache. denies: Focal weakness, Numbness, Head injury Psychiatric: reports: Reviewed and negative Endocrine: reports: Reviewed and negative Immunocompromised: reports: Reviewed and negative PD PAST MEDICAL HISTORY - Past Medical History Cardiovascular: None, High cholesterol Respiratory: Asthma, Sleep apnea, CPAP use, Tuberculosis Endocrine/Autoimmune: Type 2 diabetes GI: GERD, Cholelithiasis : Incontinence HEENT: None Psych: Depression, Anxiety, Panic attacks, Post traumatic stress disorder, Claustrophobia Musculoskeletal: Osteoarthritis, Fibromyalgia, Chronic back pain Derm: None - Past Surgical History Past Surgical History: Yes General: Cholecystectomy 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 HEENT: Tonsil/Adenoidectomy Derm: Skin cancer surgery - Present Medications Home Medications: Ambulatory Orders Medication Instructions Recorded Confirmed Albuterol [Proventil Hfa] 200 puffs INH Q4H PRN 02/05/13 05/06/20 Fluticasone [Flonase] 1 sprays ANABELA DAILY 02/05/13 05/06/20 Pregabalin [Lyrica] 225 mg PO BID 02/05/13 05/06/20 metFORMIN [Glucophage] 1,000 mg PO BID 05/09/15 05/06/20 Amitriptyline [Elavil] 10 mg PO HS #30 tablet 09/25/15 05/06/20 raNITIdine [Zantac] 1 tab PO DAILY 03/23/16 05/06/20 Acetaminophen with Codeine 1 each PO TID PRN 04/29/19 05/06/20 [Acetaminophen-Cod #3 Tablet] Ibuprofen 400 mg PO TID 04/29/19 05/06/20 methocarbamoL [Methocarbamol] 500 mg PO BID 04/29/19 05/06/20 Sitagliptin Phosphate [Januvia] 50 mg PO DAILY 07/21/19 05/06/20 Insulin NPH Hum/Reg Insulin Hm 20 unit SQ DAILY 05/06/20 05/06/20 [Novolin 70-30 Flexpen] - Allergies Allergies/Adverse Reactions: Allergies Allergy/AdvReac Type Severity Reaction Status Date / Time No Known Drug Allergies Allergy Verified 05/06/20 20:58 - Social History Does the pt smoke?: No Smoking Status: Never smoker Does the pt drink ETOH?: No Does the pt have substance abuse?: No - Immunizations Immunizations are current?: No Immunizations: TDAP >10years/unknown - POLST Patient has POLST: No PD ED PE NORMAL - Vitals Vital signs reviewed: Yes - General General: Alert and oriented X 3, No acute distress - HEENT HEENT: PERRL - Neck Neck: Supple, no meningeal sign - Cardiac Cardiac: RRR, No murmur - Respiratory Respiratory: No respiratory distress, Clear bilaterally - Abdomen Abdomen: Soft, Non tender, Non distended - Back Back: No CVA TTP, Other (Tenderness noted just to the right of the mid thoracic spine without distinct bony tenderness. No rib tenderness. Patient has diffuse muscular tenderness throughout the right thoracic and lumbar paraspinal musculature.) - Derm Derm: Normal color, Warm and dry, No rash - Extremities Extremities: No deformity, No edema, No calf tenderness / cord - Neuro Neuro: Alert and oriented X 3, financial services officer 2-12 intact, No motor deficit, No sensory deficit, Normal speech - Psych Psych: Normal mood, Normal affect Results - Vitals Vitals: Vital Signs - 24 hr 05/06/20 05/06/20 20:55 23:27 Temperature 36.5 C Heart Rate 87 82 Respiratory 18 16 Rate Blood Pressure 103/76 104/76 O2 Saturation 98 97 Oxygen O2 Source Room air PD MEDICAL DECISION MAKING - ED course Complexity details: considered differential, d/w patient ED course: I discussed with the patient that given that she had no symptoms whatsoever for the first at least day and a half after her near fall, and given the fact that she did not have any direct trauma to any part of her back, it is unlikely that she has broken anything, and as such, I do not feel that imaging is indicated. I treated the patient symptomatically with Toradol and Dilaudid in the emergency department. She is on a pain contract as an outpatient and we have both agreed that it is best if she not have narcotics as an outpatient. We discussed the usual indications for return. Departure - Departure Disposition: 01 Home, Self Care Clinical Impression: Tension headache Back strain Qualifiers: Encounter type: initial encounter Qualified Code(s): S39.012A - Strain of muscle, fascia and tendon of lower back, initial encounter Condition: Stable Instructions: ED Sprain Strain Lumbar Discharge Date/Time: 05/06/20 23:27
[2020-05-06 23:28] VITALS: BP 104/76
== END 2020-05-06 23:27 | disposition home or self-care (01) ==
LOC: ED 20:50
DX: G44.209 Tension-type headache, unspecified, not intractable (principal); S39.012A Strain of muscle, fascia and tendon of lower back, initial encounter; W18.40XA Slipping, tripping and stumbling without falling, unspecified, initial encounter; E11.9 Type 2 diabetes mellitus without complications; Z79.4 Long term (current) use of insulin
CPT/HCPCS: 96372; 99283; 99284; J1170

== ENCOUNTER 2021-03-06 15:15 | Emergency (ER) | payer MEDICARE, MEDICAID ==
--- NOTE | 2021-03-06 16:50 | ED Physician Documentation ---
History of Present Illness - Stated complaint Stated Complaint: RASH - Chief complaint Chief Complaint: Allergic Rx - Additonal information Additional information: 65-year-old female presents emergency department for evaluation of a rash on the back of both of her calves. Began 3 days ago after she showered and used a new razor. It is reported as being intensely pruritic. It was bright red however she applied hydrocortisone cream to it today which markedly improve the symptoms as well as the appearance of the rash. No history of similar. Patient is a type II diabetic. Blood sugars typically in the 150 range. Review of Systems Constitutional: reports: Reviewed and negative Eyes: reports: Reviewed and negative Cardiac: reports: Reviewed and negative Respiratory: reports: Reviewed and negative GI: reports: Reviewed and negative Skin: reports: Rash PD PAST MEDICAL HISTORY - Past Medical History Cardiovascular: None, High cholesterol Respiratory: Asthma, Sleep apnea, CPAP use, Tuberculosis Endocrine/Autoimmune: Type 2 diabetes GI: GERD, Cholelithiasis : Incontinence HEENT: None Psych: Depression, Anxiety, Panic attacks, Post traumatic stress disorder, Claustrophobia Musculoskeletal: Osteoarthritis, Fibromyalgia, Chronic back pain Derm: None - Past Surgical History Past Surgical History: Yes General: Cholecystectomy 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 HEENT: Tonsil/Adenoidectomy Derm: Skin cancer surgery - Present Medications Home Medications: Ambulatory Orders Medication Instructions Recorded Confirmed Albuterol [Proventil Hfa] 200 puffs INH Q4H PRN 02/05/13 05/06/20 Fluticasone [Flonase] 1 sprays ANABELA DAILY 02/05/13 05/06/20 Pregabalin [Lyrica] 225 mg PO BID 02/05/13 05/06/20 metFORMIN [Glucophage] 1,000 mg PO BID 05/09/15 05/06/20 Amitriptyline [Elavil] 10 mg PO HS #30 tablet 09/25/15 05/06/20 raNITIdine [Zantac] 1 tab PO DAILY 03/23/16 05/06/20 Acetaminophen with Codeine 1 each PO TID PRN 04/29/19 05/06/20 [Acetaminophen-Cod #3 Tablet] Ibuprofen 400 mg PO TID 04/29/19 05/06/20 methocarbamoL [Methocarbamol] 500 mg PO BID 04/29/19 05/06/20 Sitagliptin Phosphate [Januvia] 50 mg PO DAILY 07/21/19 05/06/20 Insulin NPH Hum/Reg Insulin Hm 20 unit SQ DAILY 05/06/20 05/06/20 [Novolin 70-30 Flexpen] Hydrocortisone 1% Oint 28 gm TP BID #1 unit 03/06/21 [Hydrocortisone] - Allergies Allergies/Adverse Reactions: Allergies Allergy/AdvReac Type Severity Reaction Status Date / Time No Known Drug Allergies Allergy Verified 03/06/21 15:20 - Social History Does the pt smoke?: No Smoking Status: Never smoker Does the pt drink ETOH?: No Does the pt have substance abuse?: No - Immunizations Immunizations are current?: No Immunizations: TDAP >10years/unknown - POLST Patient has POLST: No PD ED PE EXPANDED - General General: Alert, No acute distress, Well developed/nourished - Cardiac Cardiac: Regular Rate, Radial strong equal, Pedal strong equal, Cap refill < 2 sec. No: Murmur Present - Derm Derm: Normal color, Warm and dry, Rash (Flat erythematous blanchable macular rash on the back of both calves. Nonvesicular. No surrounding induration or erythema.) Results - Vitals Vitals: Vital Signs - 24 hr 03/06/21 15:21 Temperature 36.5 C Oxygen O2 Source Room air PD MEDICAL DECISION MAKING - ED course Complexity details: re-evaluated patient, d/w patient, d/w family ED course: 65-year-old female presents the emergency department for evaluation of a rash on the back of both of her calves for 3 days. This occurred after showering and using a new razor. It is intensely pruritic and the rash did improve after using hydrocortisone. I suspect she likely has a dermatitis. Patient was given a one-time dose of Decadron here in the ER and will be advised hydrocortisone ointment twice daily for 5 to 7 days. Emergent return precautions discussed for concerns of worsening rash. History and exam is not consistent with a cellulitis. Departure - Departure Disposition: 01 Home, Self Care Clinical Impression: Rash and nonspecific skin eruption Condition: Stable Record reviewed to determine appropriate education?: Yes Instructions: Dermatitis Atopic Prescriptions: Hydrocortisone 1% Oint [Hydrocortisone] 28 gm TP BID #1 unit Comments: Olesya the rash on the back your legs looks like a dermatitis. It is likely related to the razor when you showered. We have given you a one-time dose of an oral steroid which should help with the itch and redness. Please apply the hyd rocortisone ointment to the back of your legs twice daily for about a week. It can take 7 to 10 days for the rash to fully dissipate. Please discuss this ED visit with your primary care doctor. Return to the ER if your rash is worsening despite this treatment after a week
[2021-03-06] MEDS ORDERED: DEXAMETHASONE 10 MG/ML VIAL PO STA (16:51)
[2021-03-06] MEDS ORDERED: CHERRY SYRUP 10 ML UDC PO ONE (16:51)
[2021-03-06 17:01] VITALS: BP 136/74
== END 2021-03-06 17:05 | disposition home or self-care (01) ==
LOC: ED 15:15
DX: R21 Rash and other nonspecific skin eruption (principal); L29.9 Pruritus, unspecified; E11.9 Type 2 diabetes mellitus without complications; Z79.4 Long term (current) use of insulin
CPT/HCPCS: 99282; 99283; A9270

== ENCOUNTER 2021-07-15 10:49 | Outpatient (CLI) | payer MEDICARE ==
--- NOTE | 2021-07-15 13:24 | DEXA Report ---
PROCEDURE: Dexa Spine and/or Hip INDICATIONS: POST MENOPAUSAL TECHNIQUE: Dual energy x-ray absorptiometry (DXA) was performed on a [employer] System. Regions measur ed are the AP Spine, femoral neck, and if needed forearm. COMPARISON: None. FINDINGS: Lumbar Spine: Bone Mineral Density 1.057 g/cm/cm,T score -1.1 Left Hip: Bone Mineral Density 0.961 g/cm/cm, T score -0.4 Left Femoral Neck: Bone Mineral Density 0.844 g/cm/cm, T score -1.4 (T score greater or equal to -1.0: NORMAL) (T score from -1.1 to -2.4: OSTEOPENIA) (T score less than or equal to -2.5 to: OSTEOPOROSIS) Impression: 1. Lumbar spine osteopenia. 2. Left femoral neck osteopenia. Patients with diagnosis of osteoporosis or osteopenia should have regular bone mineral density assess ment. For those eligible for Medicare, routine testing is allowed once every 2 years. Testing frequ ency can be increased for patients who have rapidly progressing disease or for those who are receivin g medical therapy to restore bone mass. Reviewed by: Earl Doran MD on 07/15/2021 1:23 PM PST Approved by: Earl Doran MD on 07/15/2021 1:23 PM PST Station ID: [id number]
== END 2021-07-15 10:50 | disposition home or self-care (01) ==
LOC: DI 10:49
PROVIDERS: ATTEND Internal Medicine
DX: M85.89 Other specified disorders of bone density and structure, multiple sites (principal); Z78.0 Asymptomatic menopausal state